=== PATIENT | male | born 2000 | race Caucasian/White ===

== ENCOUNTER 2022-09-06 16:11 | Emergency (ER) | payer OTHER, BC ==
[2022-09-06 16:23] VITALS: BP 134/78; PULSE 102; O2SAT 95
[2022-09-06] MEDS ORDERED: Adacel Vial IM ONE (16:40)
[2022-09-06] MEDS ORDERED: TORAdol 30 mg Injection ONE (16:40)
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
[2022-09-06] MEDS: Adacel Vial IM ONE (16:44)
[2022-09-06] MEDS: TORAdol 30 mg Injection IM ONE (16:46)
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
== END 2022-09-06 17:15 | disposition home or self-care (01) ==
LOC: ED 16:11
DX: S80.01XA Contusion of right knee, initial encounter (principal); M25.561 Pain in right knee; V89.2XXA Person injured in unspecified motor-vehicle accident, traffic, initial encounter
CPT/HCPCS: 73562; 90471; 90715; 96372; 99283; J1885